=== PATIENT | female | born 1995 | race Two or more races ===

== ENCOUNTER 2018-03-03 10:22 | Emergency (ER) | payer MEDICAID ==
[~2018-03-03] VITALS: Ht 149.9 cm; Wt 49.9 kg
[2018-03-03 10:40] VITALS: BP 122/78
[2018-03-03] MEDS ORDERED: Acetaminophen 500mg (ES) tab ORAL ONE (11:15)
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
[2018-03-03] MEDS ORDERED: SILVADENE20 GM TP (11:23)
[2018-03-03 11:29] VITALS: BP 123/80
== END 2018-03-03 12:00 | disposition home or self-care (01) ==
LOC: EMR 12:00
DX: T22.011A Burn of unspecified degree of right forearm, initial encounter (principal); S00.511A Abrasion of lip, initial encounter; X08.8XXA Exposure to other specified smoke, fire and flames, initial encounter; V43.52XA Car driver injured in collision with other type car in traffic accident, initial encounter; Y92.9 Unspecified place or not applicable
CPT/HCPCS: 99282